=== PATIENT | female | born 1930 | race Caucasian/White ===

== ENCOUNTER 2018-06-14 13:42 | Emergency (ER) | payer OTHER ==
[~2018-06-14] VITALS: Ht 149.9 cm; Wt 61.2 kg
[~2018-06-14 13:42] MED LIST: ACETAMINOPHEN325 M1 PO; ALBUTEROL PO; ALLOPURINOL 10100 M1 PO; AVELOX 400 MG400 M1 PO; CALCIUM 600 +1 EAC1 PO; CALCIUM OYSTER500 MG PO; CIPRO250 M1; COLACE100 MG PO; COQ-10100 MG PO; CRESTOR10 MG PO; FERREX 150150 MG PO; FIBER500 MG PO; FIBERCON625 M1 PO; FIBERCON625 MG PO; IBUPROFEN 600600 M1 PO; LEVOXYL88 MCG PO; LISINOPRIL2.5 MG PO; LORTAB 5 MG/5001 TAB PO; MULTIPLE VITAM1 EAC3 PO; MULTIVITAMINS PO; MULTIVITAMINS1 EAC7 PO; NORCO 5-325 TA1 EACH PO; PREDNISONE 10 M10 M1 PO; PREDNISONE 10 M10 MG PO; PRINIVIL10 MG PO; PRINIVIL5 MG PO; SIMVASTATIN40 MG PO; TIROSINT88 MCG PO; ULTRAM 50MG TAB50 MG PO; VANCOMYCIN100 MG/ML PO; VITAMIN D400 UNIT PO; XARELTO10 M1 PO; ZOCOR40 MG PO
[2018-06-14] MEDS ORDERED: ULTRAM 50MG TAB50 MG PO (15:27)
[2018-06-14 15:50] VITALS: BP 152/70
== END 2018-06-14 15:51 | disposition home or self-care (01) ==
LOC: ER 13:42
DX: S20.211A Contusion of right front wall of thorax, initial encounter (principal); F17.210 Nicotine dependence, cigarettes, uncomplicated; M10.9 Gout, unspecified; I12.9 Hypertensive chronic kidney disease with stage 1 through stage 4 chronic kidney disease, or unspecified chronic kidney disease; N18.3 Chronic kidney disease, stage 3 (moderate); E03.9 Hypothyroidism, unspecified; E78.5 Hyperlipidemia, unspecified; E78.00 Pure hypercholesterolemia, unspecified; Z88.8 Allergy status to other drugs, medicaments and biological substances; Z88.5 Allergy status to narcotic agent; Z88.6 Allergy status to analgesic agent; Z91.048 Other nonmedicinal substance allergy status; Z88.0 Allergy status to penicillin; Z90.49 Acquired absence of other specified parts of digestive tract; Z96.641 Presence of right artificial hip joint; W01.0XXA Fall on same level from slipping, tripping and stumbling without subsequent striking against object, initial encounter; Y92.89 Other specified places as the place of occurrence of the external cause; Y93.89 Activity, other specified; Y99.8 Other external cause status

== ENCOUNTER 2018-09-10 09:22 | Emergency (ER) | payer OTHER ==
[~2018-09-10] VITALS: Ht 180.3 cm; Wt 58.1 kg
[2018-09-10 11:29] VITALS: BP 163/74
== END 2018-09-10 11:20 | disposition home or self-care (01) ==
LOC: ER 09:22
DX: M25.562 Pain in left knee (principal); F17.210 Nicotine dependence, cigarettes, uncomplicated; I12.9 Hypertensive chronic kidney disease with stage 1 through stage 4 chronic kidney disease, or unspecified chronic kidney disease; N18.3 Chronic kidney disease, stage 3 (moderate); E03.9 Hypothyroidism, unspecified; E78.00 Pure hypercholesterolemia, unspecified; M10.9 Gout, unspecified; Z90.710 Acquired absence of both cervix and uterus; Z88.8 Allergy status to other drugs, medicaments and biological substances; Z90.49 Acquired absence of other specified parts of digestive tract; Z88.5 Allergy status to narcotic agent; Z88.6 Allergy status to analgesic agent; Z88.0 Allergy status to penicillin

== ENCOUNTER 2019-02-14 10:31 | Emergency (ER) | payer OTHER ==
[~2019-02-14] VITALS: Ht 149.9 cm; Wt 57.1 kg
[2019-02-14 13:11] VITALS: BP 000/00
== END 2019-02-14 13:12 | disposition home or self-care (01) ==
LOC: ER 10:31
DX: S83.8X2A Sprain of other specified parts of left knee, initial encounter (principal); I12.9 Hypertensive chronic kidney disease with stage 1 through stage 4 chronic kidney disease, or unspecified chronic kidney disease; N18.3 Chronic kidney disease, stage 3 (moderate); E03.9 Hypothyroidism, unspecified; E78.00 Pure hypercholesterolemia, unspecified; M10.9 Gout, unspecified; F17.210 Nicotine dependence, cigarettes, uncomplicated; Z90.49 Acquired absence of other specified parts of digestive tract; Z90.710 Acquired absence of both cervix and uterus; Z96.641 Presence of right artificial hip joint; Z98.890 Other specified postprocedural states; Z88.5 Allergy status to narcotic agent; Z88.6 Allergy status to analgesic agent; Z88.0 Allergy status to penicillin; X58.XXXA Exposure to other specified factors, initial encounter; Y92.89 Other specified places as the place of occurrence of the external cause; Y93.89 Activity, other specified; Y99.8 Other external cause status

== ENCOUNTER 2019-08-27 11:45 | Emergency (ER) | payer OTHER ==
[~2019-08-27] VITALS: Ht 149.9 cm; Wt 57.1 kg
[2019-08-27 13:20] VITALS: BP 174/75
== END 2019-08-27 13:20 | disposition home or self-care (01) ==
LOC: ER 11:45
DX: F45.8 Other somatoform disorders (principal); K21.9 Gastro-esophageal reflux disease without esophagitis; I12.9 Hypertensive chronic kidney disease with stage 1 through stage 4 chronic kidney disease, or unspecified chronic kidney disease; N18.3 Chronic kidney disease, stage 3 (moderate); M10.9 Gout, unspecified; E78.00 Pure hypercholesterolemia, unspecified; E03.9 Hypothyroidism, unspecified; F17.210 Nicotine dependence, cigarettes, uncomplicated; Z88.6 Allergy status to analgesic agent; Z88.8 Allergy status to other drugs, medicaments and biological substances; Z88.0 Allergy status to penicillin; Z88.1 Allergy status to other antibiotic agents; Z79.899 Other long term (current) drug therapy; Z90.710 Acquired absence of both cervix and uterus; Z90.49 Acquired absence of other specified parts of digestive tract; Z98.890 Other specified postprocedural states

== ENCOUNTER 2019-10-27 16:32 | Emergency (ER) | payer OTHER ==
[~2019-10-27] VITALS: Ht 149.9 cm; Wt 58.1 kg
[2019-10-27] MEDS ORDERED: HYDRALAZINE 2525 MG PO (16:56)
[2019-10-27 18:32] VITALS: BP 172/68
== END 2019-10-27 18:36 | disposition home or self-care (01) ==
LOC: ER 16:32
DX: S61.412A Laceration without foreign body of left hand, initial encounter (principal); I10 Essential (primary) hypertension; E03.9 Hypothyroidism, unspecified; E78.00 Pure hypercholesterolemia, unspecified; F17.210 Nicotine dependence, cigarettes, uncomplicated; Z90.49 Acquired absence of other specified parts of digestive tract; Z90.711 Acquired absence of uterus with remaining cervical stump; Z96.641 Presence of right artificial hip joint; Z79.899 Other long term (current) drug therapy; Z88.8 Allergy status to other drugs, medicaments and biological substances; Z88.5 Allergy status to narcotic agent; Z88.6 Allergy status to analgesic agent; Z91.048 Other nonmedicinal substance allergy status; Z88.0 Allergy status to penicillin; W22.01XA Walked into wall, initial encounter; Y93.89 Activity, other specified; Y92.89 Other specified places as the place of occurrence of the external cause; Y99.8 Other external cause status

== ENCOUNTER 2020-12-03 11:08 | Emergency (ER) | payer OTHER ==
[~2020-12-03] VITALS: Ht 152.4 cm; Wt 55.3 kg
[~2020-12-03 11:08] MED LIST changes: +HYDRALAZINE 2525 MG PO
[2020-12-03 12:27] LABS: ABSOLUTE NEUTROPHILS 3.3 thou/uL (1.4-8.2); EOSINOPHILS 3.9 % (0.0-3.0); HEMATOCRIT 36.4 % (37.0-47.0); HEMOGLOBIN 12.2 gm/dL (12.0-15.0); LYMPHOCYTES 47.3 % (24.0-44.0); MCHC 33.6 g/dL (28.0-37.0); MCV 95.4 fL (80.0-100.0); MONOCYTES 6.5 % (1.0-8.0); PLATELET COUNT 252 thou/uL (150-400); POLYS 41.3 % (36.0-66.0); RBC 3.82 mil/uL (4.20-5.00); RDW 14.2 % (10.5-14.5); WBC 8.1 thou/uL (4.0-11.0)
[2020-12-03 12:35] LABS: URINE BILIRUBIN NEGATIVE (Negative); URINE BLOOD TRACE (Negative); URINE COLOR YELLOW; URINE GLUCOSE-RANDOM* NEGATIVE (Negative); URINE KETONES NEGATIVE (Negative); URINE PROTEIN (DIPSTICK) NEGATIVE (Negative); URINE SPECIFIC GRAVITY 1.015 (1.005-1.035); URINE UROBILINOGEN 0.2 E.U./dl (0.2-1.0)
[2020-12-03 12:36] LABS: URINE CLARITY CLOUDY; URINE LEUKOCYTES-REFLEX 3+ (Negative); URINE NITRITE-REFLEX POSITIVE (Negative)
[2020-12-03 12:54] LABS: ANION GAP 13 mmol/L (7-16); BUN 23 mg/dL (7-18); CALCIUM 9.8 mg/dL (8.5-10.1); CHLORIDE 106 mmol/L (98-107); CO2 25 mmol/L (21-32); CREATININE 1.7 mg/dL (0.6-1.0); GLUCOSE 129 mg/dL (74-106); POTASSIUM 4.5 mmol/L (3.5-5.1)
[2020-12-03 12:59] LABS: SODIUM 144 mmol/L (136-145)
[2020-12-03 13:01] LABS: SQUAMOUS 0-3 Few /LPF (0-3)
[2020-12-03 13:02] LABS: BACTERIA-REFLEX >30 Many /HPF (None Seen); CASTS None Seen /LPF (None Seen); CRYSTALS None Seen /LPF (None Seen); URINE RBC 3-10 Few /HPF (NONE SEEN); URINE WBC-REFLEX >25 Many /HPF (0-5)
[2020-12-03 13:03] LABS: TROPONIN-I <0.06 ng/mL (<0.06)
[2020-12-03] MEDS ORDERED: MACROBID 100 M100 M1 PO (13:21)
[2020-12-03 13:27] VITALS: BP 177/44
--- NOTE | 2020-12-03 15:53 | EKG ---
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
== END 2020-12-03 13:29 | disposition home or self-care (01) ==
LOC: ER 11:08
PROVIDERS: Nurse Practitioner
DX: I12.9 Hypertensive chronic kidney disease with stage 1 through stage 4 chronic kidney disease, or unspecified chronic kidney disease (principal); N39.0 Urinary tract infection, site not specified; E03.9 Hypothyroidism, unspecified; N18.30 Chronic kidney disease, stage 3 unspecified; E78.00 Pure hypercholesterolemia, unspecified; F17.210 Nicotine dependence, cigarettes, uncomplicated; Z90.49 Acquired absence of other specified parts of digestive tract; Z90.710 Acquired absence of both cervix and uterus; Z98.890 Other specified postprocedural states; Z79.899 Other long term (current) drug therapy; Z88.6 Allergy status to analgesic agent; Z88.5 Allergy status to narcotic agent; Z88.0 Allergy status to penicillin; Z88.8 Allergy status to other drugs, medicaments and biological substances; Z91.09 Other allergy status, other than to drugs and biological substances

== ENCOUNTER 2021-06-12 10:46 | Emergency (ER) | payer OTHER ==
[~2021-06-12] VITALS: Ht 149.9 cm; Wt 57.6 kg
[~2021-06-12 10:46] MED LIST changes: +MACROBID 100 M100 M1 PO
[2021-06-12 11:43] LABS: HEMATOCRIT 33.7 % (37.0-47.0); HEMOGLOBIN 11.5 gm/dL (12.0-15.0); MCH 32.1 pg (26.0-34.0); MCHC 34.1 g/dL (28.0-37.0); MCV 94.1 fL (80.0-100.0); PLATELET COUNT 234 thou/uL (150-400); RBC 3.58 mil/uL (4.20-5.00); RDW 14.2 % (10.5-14.5); WBC 6.6 thou/uL (4.0-11.0)
[2021-06-12 11:56] LABS: CALCIUM 9.9 mg/dL (8.5-10.1); CREATININE 1.5 mg/dL (0.6-1.0); POTASSIUM 4.3 mmol/L (3.5-5.1)
--- NOTE | 2021-06-12 11:59 | EKG ---
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
[2021-06-12 12:12] LABS: ABSOLUTE NEUTROPHILS 2.1 thou/uL (1.4-8.2); ATYPICAL LYMPHS 2 %
[2021-06-12 12:29] LABS: APTT 24.4 Seconds (24.5-32.8); INR 1.07; PROTIME 11.6 Seconds (10.5-12.1)
[2021-06-12] MEDS ORDERED: NORVASC10 MG PO (13:07)
[2021-06-12 13:36] LABS: URINE BILIRUBIN NEGATIVE (Negative); URINE BLOOD NEGATIVE (Negative); URINE CLARITY CLEAR; URINE COLOR YELLOW; URINE GLUCOSE-RANDOM* NEGATIVE (Negative); URINE KETONES NEGATIVE (Negative); URINE LEUKOCYTES-REFLEX NEGATIVE (Negative); URINE NITRITE-REFLEX NEGATIVE (Negative); URINE PROTEIN (DIPSTICK) NEGATIVE (Negative); URINE SPECIFIC GRAVITY <= 1.005 (1.005-1.035); URINE UROBILINOGEN 0.2 E.U./dl (0.2-1.0)
[2021-06-12 14:23] VITALS: BP 126/43
== END 2021-06-12 14:57 | disposition home or self-care (01) ==
LOC: ER 10:46
PROVIDERS: Emergency Medicine
DX: I16.0 Hypertensive urgency (principal); E78.5 Hyperlipidemia, unspecified; E03.9 Hypothyroidism, unspecified; M10.9 Gout, unspecified; E78.00 Pure hypercholesterolemia, unspecified; I12.9 Hypertensive chronic kidney disease with stage 1 through stage 4 chronic kidney disease, or unspecified chronic kidney disease; N18.30 Chronic kidney disease, stage 3 unspecified; F17.210 Nicotine dependence, cigarettes, uncomplicated; Z95.1 Presence of aortocoronary bypass graft; Z90.49 Acquired absence of other specified parts of digestive tract; Z79.891 Long term (current) use of opiate analgesic; Z79.899 Other long term (current) drug therapy; Z88.0 Allergy status to penicillin; Z88.5 Allergy status to narcotic agent; Z88.6 Allergy status to analgesic agent

== ENCOUNTER 2021-06-24 11:00 | Emergency (ER) | payer OTHER ==
[~2021-06-24] VITALS: Ht 149.9 cm; Wt 57.6 kg
[~2021-06-24 11:00] MED LIST changes: +NORVASC10 MG PO
[2021-06-24] MEDS ORDERED: OLMESARTAN MEDO20 MG PO (11:02)
[2021-06-24 11:33] LABS: HEMOGLOBIN 11.4 gm/dL (12.0-15.0); MCH 32.9 pg (26.0-34.0); MCHC 34.5 g/dL (28.0-37.0); MCV 95.4 fL (80.0-100.0); PLATELET COUNT 265 thou/uL (150-400); RBC 3.46 mil/uL (4.20-5.00); RDW 13.9 % (10.5-14.5)
[2021-06-24 11:36] LABS: CALCIUM 9.2 mg/dL (8.5-10.1); CREATININE 1.4 mg/dL (0.6-1.0)
[2021-06-24 11:41] LABS: POTASSIUM 4.3 mmol/L (3.5-5.1)
[2021-06-24 11:46] LABS: ALBUMIN 3.8 g/dL (3.4-5.0); TOTAL BILIRUBIN 0.5 mg/dL (0.2-1.0); TOTAL PROTEIN 7.2 g/dL (6.4-8.2)
--- NOTE | 2021-06-24 11:50 | EKG ---
[address] [place] [address] ELECTROCARDIOGRAM REPORT Name: HEATH HOGAN Room #: 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1930 Requested By: Nola Lopez Order Number: [id number] MD: Otilio Greco Measurements Intervals [place] Rate: 83 P: 66 OR: 135 QRS: 11 QRSD: 82 T: 41 QT: 376 QTc: 442 Interpretive Statements Sinus rhythm Probable anteroseptal infarct, old Compared to ECG 06/12/2021 11:52:06 Myocardial infarct finding now present Electronically Signed On 06-24-2021 11:50:24 DICTAPHONE MECHANIC by Otilio Greco [email or web address] <ELECTRONICALLY SIGNED> By: Otilio Greco MD, [facility] 06/24/21 1150 1112 1112 Otilio Greco MD, FACC /EPI
[2021-06-24 12:17] LABS: ABSOLUTE NEUTROPHILS 4.9 thou/uL (1.4-8.2); PLATELET ESTIMATE NORMAL
[2021-06-24 13:01] LABS: URINE BILIRUBIN NEGATIVE (Negative); URINE BLOOD NEGATIVE (Negative); URINE CLARITY CLEAR; URINE COLOR YELLOW; URINE GLUCOSE-RANDOM* NEGATIVE (Negative); URINE KETONES NEGATIVE (Negative); URINE LEUKOCYTES-REFLEX NEGATIVE (Negative); URINE NITRITE-REFLEX NEGATIVE (Negative); URINE PROTEIN (DIPSTICK) NEGATIVE (Negative); URINE SPECIFIC GRAVITY <= 1.005 (1.005-1.035); URINE UROBILINOGEN 0.2 E.U./dl (0.2-1.0)
[2021-06-24 13:22] VITALS: BP 179/59
== END 2021-06-24 13:22 | disposition home or self-care (01) ==
LOC: ER 11:00
PROVIDERS: Nurse Practitioner; Student in an Organized Health Care Education/Training Program
DX: I10 Essential (primary) hypertension (principal); I12.9 Hypertensive chronic kidney disease with stage 1 through stage 4 chronic kidney disease, or unspecified chronic kidney disease; N18.30 Chronic kidney disease, stage 3 unspecified; E03.9 Hypothyroidism, unspecified; E78.00 Pure hypercholesterolemia, unspecified; F17.210 Nicotine dependence, cigarettes, uncomplicated; Z90.49 Acquired absence of other specified parts of digestive tract; Z90.710 Acquired absence of both cervix and uterus; Z79.899 Other long term (current) drug therapy; Z88.5 Allergy status to narcotic agent; Z88.6 Allergy status to analgesic agent; Z88.0 Allergy status to penicillin